=== PATIENT | female | born 1960 | race Native Hawaiian/Other Pacific Islander ===

== ENCOUNTER 2017-05-22 14:04 | Outpatient (CLI) | payer BC ==
[~2017-05-22 14:04] MED LIST: AMOX500C85 PO; BENZONATATE200 MG PO; LIPITOR20 MG PO; NEXIUM20 M1 PO
== END 2017-05-22 15:05 | disposition home or self-care (01) ==
LOC: RAD 14:04
DX: M25.562 Pain in left knee (principal); M79.89 Other specified soft tissue disorders

== ENCOUNTER 2020-01-03 14:05 | Outpatient (CLI) | payer BC ==
[2020-01-03 14:26] LABS: PLATELET COUNT 312 K/uL (152-353)
[2020-01-03 14:57] LABS: POTASSIUM 3.5 mmol/L (3.6-5.2)
== END 2020-01-03 22:21 | disposition home or self-care (01) ==
LOC: LABW 14:05
PROVIDERS: Internal Medicine Medical Oncology
DX: C50.211 Malignant neoplasm of upper-inner quadrant of right female breast (principal); Z51.81 Encounter for therapeutic drug level monitoring; Z79.899 Other long term (current) drug therapy
CPT/HCPCS: 36415; 80053; 85027

== ENCOUNTER 2020-01-10 09:56 | Outpatient (CLI) | payer BC ==
[2020-01-10 10:33] LABS: PLATELET COUNT 340 K/uL (152-353)
== END 2020-01-10 19:40 | disposition home or self-care (01) ==
LOC: LABW 09:56
PROVIDERS: Internal Medicine Medical Oncology
DX: C50.211 Malignant neoplasm of upper-inner quadrant of right female breast (principal); Z51.81 Encounter for therapeutic drug level monitoring; Z79.899 Other long term (current) drug therapy
CPT/HCPCS: 36415; 80053; 85027

== ENCOUNTER 2020-01-18 10:28 | Outpatient (CLI) | payer BC ==
[2020-01-18 11:57] LABS: POTASSIUM 3.2 mmol/L (3.6-5.2)
[2020-01-18 12:02] LABS: PLATELET COUNT 328 K/uL (152-353)
== END 2020-01-18 21:47 | disposition home or self-care (01) ==
LOC: LABW 10:28
PROVIDERS: Internal Medicine Medical Oncology
DX: C50.211 Malignant neoplasm of upper-inner quadrant of right female breast (principal); Z51.81 Encounter for therapeutic drug level monitoring; Z79.899 Other long term (current) drug therapy
CPT/HCPCS: 36415; 80053; 85027

== ENCOUNTER 2020-01-31 09:50 | Outpatient (CLI) | payer BC ==
[2020-01-31 10:03] LABS: PLATELET COUNT 357 K/uL (152-353)
[2020-01-31 10:15] LABS: POTASSIUM 3.9 mmol/L (3.6-5.2)
== END 2020-01-31 23:08 | disposition home or self-care (01) ==
LOC: LABW 09:50
PROVIDERS: Internal Medicine Medical Oncology
DX: C50.211 Malignant neoplasm of upper-inner quadrant of right female breast (principal); Z51.81 Encounter for therapeutic drug level monitoring; Z79.899 Other long term (current) drug therapy
CPT/HCPCS: 36415; 80053; 85027

== ENCOUNTER 2020-02-07 10:34 | Outpatient (CLI) | payer BC ==
[2020-02-07 10:44] LABS: PLATELET COUNT 328 K/uL (152-353)
[2020-02-07 11:17] LABS: POTASSIUM 3.8 mmol/L (3.6-5.2)
== END 2020-02-07 22:05 | disposition home or self-care (01) ==
LOC: LABW 10:34
PROVIDERS: Internal Medicine Medical Oncology
DX: C50.211 Malignant neoplasm of upper-inner quadrant of right female breast (principal); Z51.81 Encounter for therapeutic drug level monitoring; Z79.899 Other long term (current) drug therapy
CPT/HCPCS: 36415; 80053; 85027

== ENCOUNTER 2020-02-14 10:55 | Outpatient (CLI) | payer BC ==
[2020-02-14 11:07] LABS: PLATELET COUNT 320 K/uL (152-353)
[2020-02-14 11:22] LABS: POTASSIUM 3.5 mmol/L (3.6-5.2)
== END 2020-02-14 19:28 | disposition home or self-care (01) ==
LOC: LABW 10:55
PROVIDERS: Internal Medicine Medical Oncology
DX: C50.211 Malignant neoplasm of upper-inner quadrant of right female breast (principal); Z51.81 Encounter for therapeutic drug level monitoring; Z79.899 Other long term (current) drug therapy
CPT/HCPCS: 36415; 80053; 85027

== ENCOUNTER 2020-02-21 07:52 | Outpatient (CLI) | payer BC ==
[2020-02-21 08:06] LABS: PLATELET COUNT 284 K/uL (152-353)
[2020-02-21 08:11] LABS: POTASSIUM 3.6 mmol/L (3.6-5.2)
== END 2020-02-21 21:05 | disposition home or self-care (01) ==
LOC: LABW 07:52
PROVIDERS: Internal Medicine Medical Oncology
DX: C50.211 Malignant neoplasm of upper-inner quadrant of right female breast (principal); Z51.81 Encounter for therapeutic drug level monitoring; Z79.899 Other long term (current) drug therapy
CPT/HCPCS: 36415; 80053; 85027

== ENCOUNTER 2020-02-28 11:03 | Outpatient (CLI) | payer BC ==
[2020-02-28 11:26] LABS: POTASSIUM 3.4 mmol/L (3.6-5.2)
[2020-02-28 11:48] LABS: PLATELET COUNT 330 K/uL (152-353)
== END 2020-02-28 21:49 | disposition home or self-care (01) ==
LOC: LABW 11:03
PROVIDERS: Internal Medicine Medical Oncology
DX: C50.211 Malignant neoplasm of upper-inner quadrant of right female breast (principal); Z51.81 Encounter for therapeutic drug level monitoring; Z79.899 Other long term (current) drug therapy
CPT/HCPCS: 36415; 80053; 85007; 85027; 86300

== ENCOUNTER 2020-03-06 14:40 | Outpatient (CLI) | payer BC ==
[2020-03-06 15:11] LABS: PLATELET COUNT 324 K/uL (152-353)
[2020-03-06 15:26] LABS: POTASSIUM 3.8 mmol/L (3.6-5.2)
== END 2020-03-06 19:25 | disposition home or self-care (01) ==
LOC: LABW 14:40
PROVIDERS: Internal Medicine Medical Oncology
DX: C50.211 Malignant neoplasm of upper-inner quadrant of right female breast (principal); Z51.81 Encounter for therapeutic drug level monitoring; Z79.899 Other long term (current) drug therapy
CPT/HCPCS: 36415; 80053; 85027

== ENCOUNTER 2020-03-20 10:35 | Outpatient (CLI) | payer BC ==
[2020-03-20 10:50] LABS: PLATELET COUNT 303 K/uL (152-353)
[2020-03-20 11:00] LABS: POTASSIUM 3.5 mmol/L (3.6-5.2)
== END 2020-03-20 23:59 | disposition home or self-care (01) ==
LOC: LABW 10:35
PROVIDERS: Internal Medicine Medical Oncology
DX: C50.211 Malignant neoplasm of upper-inner quadrant of right female breast (principal); Z51.81 Encounter for therapeutic drug level monitoring; Z79.899 Other long term (current) drug therapy
CPT/HCPCS: 36415; 80053; 85027

== ENCOUNTER 2020-03-27 10:56 | Outpatient (CLI) | payer BC ==
[2020-03-27 11:12] LABS: PLATELET COUNT 331 K/uL (152-353)
[2020-03-27 13:54] LABS: POTASSIUM 3.5 mmol/L (3.6-5.2)
== END 2020-03-27 22:38 | disposition home or self-care (01) ==
LOC: LABW 10:56
PROVIDERS: Internal Medicine Medical Oncology
DX: C50.211 Malignant neoplasm of upper-inner quadrant of right female breast (principal); Z51.81 Encounter for therapeutic drug level monitoring; Z79.899 Other long term (current) drug therapy
CPT/HCPCS: 36415; 80053; 85027

== ENCOUNTER 2020-04-03 16:34 | Outpatient (CLI) | payer BC ==
[2020-04-03 16:51] LABS: PLATELET COUNT 278 K/uL (152-353)
[2020-04-03 17:10] LABS: POTASSIUM 3.2 mmol/L (3.6-5.2)
== END 2020-04-03 19:26 | disposition home or self-care (01) ==
LOC: LABW 16:34
PROVIDERS: Internal Medicine Medical Oncology
DX: C50.211 Malignant neoplasm of upper-inner quadrant of right female breast (principal); Z51.81 Encounter for therapeutic drug level monitoring; Z79.899 Other long term (current) drug therapy
CPT/HCPCS: 36415; 80053; 85027

== ENCOUNTER 2020-04-10 10:41 | Outpatient (CLI) | payer BC ==
[2020-04-10 11:05] LABS: PLATELET COUNT 310 K/uL (152-353)
[2020-04-10 11:16] LABS: POTASSIUM 3.3 mmol/L (3.6-5.2)
== END 2020-04-10 21:27 | disposition home or self-care (01) ==
LOC: LABW 10:41
PROVIDERS: Internal Medicine Medical Oncology
DX: C50.211 Malignant neoplasm of upper-inner quadrant of right female breast (principal); Z51.81 Encounter for therapeutic drug level monitoring; Z79.899 Other long term (current) drug therapy
CPT/HCPCS: 36415; 80053; 85007; 85027

== ENCOUNTER 2020-04-17 10:32 | Outpatient (CLI) | payer BC ==
[2020-04-17 10:48] LABS: PLATELET COUNT 316 K/uL (152-353)
[2020-04-17 10:57] LABS: POTASSIUM 2.9 mmol/L (3.6-5.2)
== END 2020-04-17 19:18 | disposition home or self-care (01) ==
LOC: LABW 10:32
PROVIDERS: Internal Medicine Medical Oncology
DX: C50.211 Malignant neoplasm of upper-inner quadrant of right female breast (principal); Z51.81 Encounter for therapeutic drug level monitoring; Z79.899 Other long term (current) drug therapy
CPT/HCPCS: 36415; 80053; 85027

== ENCOUNTER 2020-05-01 11:05 | Outpatient (CLI) | payer BC ==
[2020-05-01 11:27] LABS: PLATELET COUNT 329 K/uL (152-353)
[2020-05-01 11:34] LABS: POTASSIUM 3.5 mmol/L (3.6-5.2)
== END 2020-05-01 21:23 | disposition home or self-care (01) ==
LOC: LABW 11:05
PROVIDERS: Internal Medicine Medical Oncology
DX: C50.211 Malignant neoplasm of upper-inner quadrant of right female breast (principal); Z51.81 Encounter for therapeutic drug level monitoring; Z79.899 Other long term (current) drug therapy
CPT/HCPCS: 36415; 80053; 85027

== ENCOUNTER 2020-05-22 11:27 | Outpatient (CLI) | payer BC ==
[2020-05-22 12:37] LABS: PLATELET COUNT 275 K/uL (152-353)
[2020-05-22 12:57] LABS: POTASSIUM 3.6 mmol/L (3.6-5.2)
== END 2020-05-22 23:34 | disposition home or self-care (01) ==
LOC: LABW 11:27
PROVIDERS: Internal Medicine Medical Oncology
DX: C50.211 Malignant neoplasm of upper-inner quadrant of right female breast (principal); Z51.81 Encounter for therapeutic drug level monitoring; Z79.899 Other long term (current) drug therapy
CPT/HCPCS: 36415; 80053; 85027

== ENCOUNTER 2020-06-12 11:09 | Outpatient (CLI) | payer BC ==
[2020-06-12 11:39] LABS: PLATELET COUNT 293 K/uL (152-353)
[2020-06-12 11:41] LABS: POTASSIUM 3.9 mmol/L (3.6-5.2)
== END 2020-06-12 22:31 | disposition home or self-care (01) ==
LOC: LABW 11:09
PROVIDERS: Internal Medicine Medical Oncology
DX: C50.211 Malignant neoplasm of upper-inner quadrant of right female breast (principal); Z51.81 Encounter for therapeutic drug level monitoring; Z79.899 Other long term (current) drug therapy
CPT/HCPCS: 36415; 80053; 85027

== ENCOUNTER 2020-07-26 11:58 | Outpatient (CLI) | payer BC ==
[2020-07-26 12:25] LABS: PLATELET COUNT 288 K/uL (152-353)
[2020-07-26 12:35] LABS: POTASSIUM 4.3 mmol/L (3.6-5.2)
== END 2020-07-26 19:59 | disposition home or self-care (01) ==
LOC: LABW 11:58
PROVIDERS: ATTEND Internal Medicine Medical Oncology
DX: C50.211 Malignant neoplasm of upper-inner quadrant of right female breast (principal); Z51.81 Encounter for therapeutic drug level monitoring; Z79.899 Other long term (current) drug therapy
CPT/HCPCS: 36415; 80053; 85027; 86300

== ENCOUNTER 2020-08-15 08:25 | Outpatient (CLI) | payer BC ==
[2020-08-15 08:43] LABS: PLATELET COUNT 281 K/uL (152-353)
[2020-08-15 09:04] LABS: POTASSIUM 3.8 mmol/L (3.6-5.2)
== END 2020-08-15 19:07 | disposition home or self-care (01) ==
LOC: LABW 08:25
PROVIDERS: ATTEND Internal Medicine Medical Oncology
DX: C50.211 Malignant neoplasm of upper-inner quadrant of right female breast (principal); Z51.81 Encounter for therapeutic drug level monitoring; Z79.899 Other long term (current) drug therapy
CPT/HCPCS: 36415; 80053; 85027

== ENCOUNTER 2020-09-05 10:52 | Outpatient (CLI) | payer BC ==
[2020-09-05 11:27] LABS: PLATELET COUNT 259 K/uL (152-353)
[2020-09-05 11:46] LABS: POTASSIUM 3.8 mmol/L (3.6-5.2)
== END 2020-09-05 21:49 | disposition home or self-care (01) ==
LOC: LABW 10:52
PROVIDERS: ATTEND Internal Medicine Medical Oncology
DX: C50.211 Malignant neoplasm of upper-inner quadrant of right female breast (principal); Z51.81 Encounter for therapeutic drug level monitoring; Z79.899 Other long term (current) drug therapy
CPT/HCPCS: 36415; 80053; 85027

== ENCOUNTER 2020-09-14 12:24 | Outpatient (CLI) | payer BC | END 2020-09-14 20:46 | disposition home or self-care (01) | LOC: LABW 12:24 | PROVIDERS: ATTEND Internal Medicine | DX: Z86.19 Personal history of other infectious and parasitic diseases (principal) | CPT/HCPCS: 36415; 86769 ==

== ENCOUNTER 2020-09-26 08:28 | Outpatient (CLI) | payer BC ==
[2020-09-26 08:51] LABS: PLATELET COUNT 286 K/uL (152-353)
[2020-09-26 09:05] LABS: POTASSIUM 3.6 mmol/L (3.6-5.2)
== END 2020-09-26 19:44 | disposition home or self-care (01) ==
LOC: LABW 08:28
PROVIDERS: ATTEND Specialist
DX: I10 Essential (primary) hypertension (principal); C50.211 Malignant neoplasm of upper-inner quadrant of right female breast; Z51.81 Encounter for therapeutic drug level monitoring; Z79.899 Other long term (current) drug therapy
CPT/HCPCS: 36415; 80053; 80061; 81000; 84439; 84443; 85027

== ENCOUNTER 2020-10-16 11:12 | Outpatient (CLI) | payer BC ==
[2020-10-16 11:45] LABS: POTASSIUM 3.6 mmol/L (3.6-5.2)
[2020-10-16 13:08] LABS: PLATELET COUNT 190 K/uL (152-353)
== END 2020-10-16 19:24 | disposition home or self-care (01) ==
LOC: LABW 11:12
PROVIDERS: ATTEND Internal Medicine Hematology & Oncology
DX: C50.211 Malignant neoplasm of upper-inner quadrant of right female breast (principal); Z51.81 Encounter for therapeutic drug level monitoring; Z79.899 Other long term (current) drug therapy
CPT/HCPCS: 36415; 80053; 85027

== ENCOUNTER 2021-02-05 11:05 | Outpatient (CLI) | payer BC ==
[2021-02-05 11:19] LABS: PLATELET COUNT 282 K/uL (152-353)
[2021-02-05 11:44] LABS: POTASSIUM 3.7 mmol/L (3.6-5.2)
== END 2021-02-05 20:01 | disposition home or self-care (01) ==
LOC: LABW 11:05
PROVIDERS: ATTEND Internal Medicine Hematology & Oncology
DX: C50.211 Malignant neoplasm of upper-inner quadrant of right female breast (principal); Z51.81 Encounter for therapeutic drug level monitoring; Z79.899 Other long term (current) drug therapy; C79.51 Secondary malignant neoplasm of bone
CPT/HCPCS: 36415; 80053; 85027

== ENCOUNTER 2021-02-26 11:17 | Outpatient (CLI) | payer BC ==
[2021-02-26 11:46] LABS: PLATELET COUNT 251 K/uL (152-353)
[2021-02-26 11:49] LABS: POTASSIUM 3.7 mmol/L (3.6-5.2)
== END 2021-02-26 23:00 | disposition home or self-care (01) ==
LOC: LABW 11:17
PROVIDERS: ATTEND Internal Medicine Hematology & Oncology
DX: C50.211 Malignant neoplasm of upper-inner quadrant of right female breast (principal); Z51.81 Encounter for therapeutic drug level monitoring; Z79.899 Other long term (current) drug therapy; C79.51 Secondary malignant neoplasm of bone
CPT/HCPCS: 36415; 80053; 85027

== ENCOUNTER 2021-04-09 10:49 | Outpatient (CLI) | payer BC ==
[2021-04-09 11:16] LABS: PLATELET COUNT 260 K/uL (152-353)
[2021-04-09 11:27] LABS: POTASSIUM 3.9 mmol/L (3.6-5.2)
== END 2021-04-09 19:10 | disposition home or self-care (01) ==
LOC: LABW 10:49
PROVIDERS: ATTEND Internal Medicine Hematology & Oncology
DX: C50.211 Malignant neoplasm of upper-inner quadrant of right female breast (principal); Z51.81 Encounter for therapeutic drug level monitoring; Z79.899 Other long term (current) drug therapy; C79.51 Secondary malignant neoplasm of bone
CPT/HCPCS: 36415; 80053; 85027

== ENCOUNTER 2021-05-01 11:56 | Outpatient (CLI) | payer BC ==
[2021-05-01 12:06] LABS: PLATELET COUNT 269 K/uL (152-353)
[2021-05-01 12:25] LABS: POTASSIUM 3.9 mmol/L (3.6-5.2)
== END 2021-05-01 20:36 | disposition home or self-care (01) ==
LOC: LABW 11:56
PROVIDERS: ATTEND Internal Medicine Hematology & Oncology
DX: C50.211 Malignant neoplasm of upper-inner quadrant of right female breast (principal); C79.51 Secondary malignant neoplasm of bone; Z51.81 Encounter for therapeutic drug level monitoring; Z79.899 Other long term (current) drug therapy
CPT/HCPCS: 36415; 80053; 85027

== ENCOUNTER 2021-05-21 07:50 | Outpatient (CLI) | payer BC ==
[2021-05-21 08:09] LABS: PLATELET COUNT 273 K/uL (152-353)
[2021-05-21 09:26] LABS: POTASSIUM 3.3 mmol/L (3.6-5.2)
== END 2021-05-21 19:22 | disposition home or self-care (01) ==
LOC: LABW 07:50
PROVIDERS: ATTEND Internal Medicine Hematology & Oncology
DX: C50.211 Malignant neoplasm of upper-inner quadrant of right female breast (principal); C79.51 Secondary malignant neoplasm of bone; Z51.81 Encounter for therapeutic drug level monitoring; Z79.899 Other long term (current) drug therapy
CPT/HCPCS: 36415; 80053; 85027; 86316

== ENCOUNTER 2021-07-02 11:50 | Outpatient (CLI) | payer BC ==
[2021-07-02 12:19] LABS: PLATELET COUNT 300 K/uL (152-353)
== END 2021-07-02 20:24 | disposition home or self-care (01) ==
LOC: LABW 11:50
PROVIDERS: ATTEND Internal Medicine Hematology & Oncology
DX: G62.0 Drug-induced polyneuropathy (principal); C50.211 Malignant neoplasm of upper-inner quadrant of right female breast; C79.51 Secondary malignant neoplasm of bone; Z51.81 Encounter for therapeutic drug level monitoring; Z79.899 Other long term (current) drug therapy
CPT/HCPCS: 36415; 80053; 85027; 86316

== ENCOUNTER 2021-09-03 09:16 | Outpatient (CLI) | payer BC ==
[2021-09-03 09:39] LABS: PLATELET COUNT 234 K/uL (152-353)
[2021-09-03 09:46] LABS: POTASSIUM 3.7 mmol/L (3.6-5.2)
== END 2021-09-03 19:48 | disposition home or self-care (01) ==
LOC: LABW 09:16
PROVIDERS: ATTEND Internal Medicine Hematology & Oncology
DX: C50.211 Malignant neoplasm of upper-inner quadrant of right female breast (principal); I10 Essential (primary) hypertension; E78.00 Pure hypercholesterolemia, unspecified
CPT/HCPCS: 36415; 80053; 80061; 81000; 84439; 84443; 85027; 86300

== ENCOUNTER 2021-09-24 10:40 | Outpatient (CLI) | payer BC ==
[2021-09-24 10:56] LABS: PLATELET COUNT 268 K/uL (152-353)
[2021-09-24 11:01] LABS: POTASSIUM 3.9 mmol/L (3.6-5.2)
== END 2021-09-24 19:04 | disposition home or self-care (01) ==
LOC: LABW 10:40
PROVIDERS: ATTEND Internal Medicine Hematology & Oncology
DX: C50.211 Malignant neoplasm of upper-inner quadrant of right female breast (principal); G62.0 Drug-induced polyneuropathy; C79.51 Secondary malignant neoplasm of bone; Z51.81 Encounter for therapeutic drug level monitoring; Z79.899 Other long term (current) drug therapy
CPT/HCPCS: 36415; 80053; 85027; 86300

== ENCOUNTER 2021-10-22 11:05 | Outpatient (CLI) | payer BC ==
[2021-10-22 11:21] LABS: PLATELET COUNT 283 K/uL (152-353)
== END 2021-10-22 18:51 | disposition home or self-care (01) ==
LOC: LABW 11:05
PROVIDERS: ATTEND Internal Medicine Hematology & Oncology
DX: C50.211 Malignant neoplasm of upper-inner quadrant of right female breast (principal); G62.0 Drug-induced polyneuropathy; C79.51 Secondary malignant neoplasm of bone; Z51.81 Encounter for therapeutic drug level monitoring; Z79.899 Other long term (current) drug therapy
CPT/HCPCS: 36415; 80053; 85027

== ENCOUNTER 2021-11-12 13:07 | Outpatient (CLI) | payer BC ==
[2021-11-12 13:32] LABS: PLATELET COUNT 294 K/uL (152-353)
[2021-11-12 13:41] LABS: POTASSIUM 4.4 mmol/L (3.6-5.2)
== END 2021-11-12 19:13 | disposition home or self-care (01) ==
LOC: LABW 13:07
PROVIDERS: ATTEND Internal Medicine Hematology & Oncology
DX: C50.211 Malignant neoplasm of upper-inner quadrant of right female breast (principal); G62.0 Drug-induced polyneuropathy; C79.51 Secondary malignant neoplasm of bone; Z51.81 Encounter for therapeutic drug level monitoring; Z79.899 Other long term (current) drug therapy
CPT/HCPCS: 36415; 80053; 85027; 86300

== ENCOUNTER 2021-12-04 09:12 | Outpatient (CLI) | payer BC ==
[2021-12-04 10:15] LABS: PLATELET COUNT 242 K/uL (152-353)
[2021-12-04 10:51] LABS: POTASSIUM 3.8 mmol/L (3.6-5.2)
== END 2021-12-04 19:41 | disposition home or self-care (01) ==
LOC: LABW 09:12
PROVIDERS: ATTEND Internal Medicine Hematology & Oncology
DX: C50.211 Malignant neoplasm of upper-inner quadrant of right female breast (principal); G62.0 Drug-induced polyneuropathy; C79.51 Secondary malignant neoplasm of bone; Z51.81 Encounter for therapeutic drug level monitoring; Z79.899 Other long term (current) drug therapy
CPT/HCPCS: 36415; 80053; 85027; 86300

== ENCOUNTER 2021-12-24 09:59 | Outpatient (CLI) | payer BC ==
[2021-12-24 10:13] LABS: PLATELET COUNT 318 K/uL (152-353)
[2021-12-24 10:18] LABS: POTASSIUM 3.9 mmol/L (3.6-5.2)
== END 2021-12-24 18:57 | disposition home or self-care (01) ==
LOC: LABW 09:59
PROVIDERS: ATTEND Internal Medicine Hematology & Oncology
DX: C50.211 Malignant neoplasm of upper-inner quadrant of right female breast (principal); G62.0 Drug-induced polyneuropathy; C79.51 Secondary malignant neoplasm of bone; Z51.81 Encounter for therapeutic drug level monitoring; Z79.899 Other long term (current) drug therapy
CPT/HCPCS: 36415; 80053; 85027; 86300

== ENCOUNTER 2022-02-11 11:22 | Outpatient (CLI) | payer BC ==
[2022-02-11 11:37] LABS: PLATELET COUNT 286 K/uL (152-353)
== END 2022-02-11 18:48 | disposition home or self-care (01) ==
LOC: LABW 11:22
PROVIDERS: ATTEND Physician Assistant
DX: C50.211 Malignant neoplasm of upper-inner quadrant of right female breast (principal); G62.0 Drug-induced polyneuropathy; C79.51 Secondary malignant neoplasm of bone; Z51.81 Encounter for therapeutic drug level monitoring; Z79.899 Other long term (current) drug therapy
CPT/HCPCS: 36415; 80053; 85027

== ENCOUNTER 2022-04-01 10:47 | Outpatient (CLI) | payer BC ==
[2022-04-01 11:01] LABS: PLATELET COUNT 260 K/uL (152-353)
[2022-04-01 11:19] LABS: POTASSIUM 3.5 mmol/L (3.6-5.2)
== END 2022-04-01 18:58 | disposition home or self-care (01) ==
LOC: LABW 10:47
PROVIDERS: ATTEND Internal Medicine Hematology & Oncology
DX: C50.211 Malignant neoplasm of upper-inner quadrant of right female breast (principal); Z51.81 Encounter for therapeutic drug level monitoring; Z79.899 Other long term (current) drug therapy; C79.51 Secondary malignant neoplasm of bone; G62.0 Drug-induced polyneuropathy
CPT/HCPCS: 36415; 80053; 85027

== ENCOUNTER 2022-08-05 11:15 | Outpatient (CLI) | payer OTHER ==
[2022-08-05 11:28] LABS: PLATELET COUNT 280 K/uL (152-353)
[2022-08-05 11:39] LABS: POTASSIUM 3.9 mmol/L (3.6-5.2)
== END 2022-08-05 20:23 | disposition home or self-care (01) ==
LOC: LABW 11:15
PROVIDERS: ATTEND Physician Assistant
DX: C50.211 Malignant neoplasm of upper-inner quadrant of right female breast (principal); Z51.81 Encounter for therapeutic drug level monitoring; Z79.899 Other long term (current) drug therapy; C79.51 Secondary malignant neoplasm of bone; G62.0 Drug-induced polyneuropathy
CPT/HCPCS: 36415; 80053; 85027; 86300